=== PATIENT | female | born 1965 | race Asian ===

== ENCOUNTER 2016-10-14 10:00 | Emergency (ER) | payer OTHER ==
[~2016-10-14] VITALS: Ht 160 cm; Wt 71.7 kg
[~2016-10-14 10:00] MED LIST: ALBU-136 IH; FLUT1POW3 IH
[2016-10-14 10:03] VITALS: BP 152/114
--- NOTE | 2016-10-14 10:05 | NUR ---
PATIENT AMBULATED TO ER BED 4.
[2016-10-14] MEDS ORDERED: [UNRECOGNIZED DRUG - CODE] PO (10:07)
[2016-10-14] MEDS ORDERED: AMLO5TAB1 PO (10:07)
--- NOTE | 2016-10-14 10:10 | NUR ---
Patient being evaluated by physician at bedside.
[2016-10-14] MEDS ORDERED: methylPREDNISolone SS 125 MG in WATER STERILE 2 ML IM ONE (10:15)
[2016-10-14] MEDS ORDERED: ALBUTEROL 0.083% 2.5 MG/3 ML NEBU INH ONE ×2 (10:15→11:25)
[2016-10-14] MEDS ORDERED: IPRATROPIUM 0.02% 0.5 MG/2.5 ML NEBU INH ONE ×2 (10:15→11:25)
--- NOTE | 2016-10-14 10:16 | NUR ---
50/F TO ED WITH C/O SOB WITH COUGH AND CHEST PAIN STARTING AT APPROX 0200 TODAY. STATES PAIN IN CHEST IS NON RADIATING 12/12. PT HAS HX OF ASTHMA. BILAT WHEEZING HEARD IN LOWER LOBES. DENIES N/V/D. HR EVEN AND REGULAR. AAOX4. VSS. NO SIGNS OF DISTRESS. ERMD TO EVALUATE PT.
[2016-10-14 10:29] LABS: BASOPHILS # (AUTO) 0.3 K/uL (0.00-0.22); BASOPHILS % (AUTO) 3.2 % (0.0-2.0); EOSINOPHILS # (AUTO) 0.6 K/uL (0-0.4); EOSINOPHILS % (AUTO) 7.1 % (0.0-4.0); HEMATOCRIT 41.1 % (36-48); HEMOGLOBIN 13.4 g/dL (12.0-16.0); LYMPHOCYTES # (AUTO) 2.9 K/uL (2.5-16.5); LYMPHOCYTES % (AUTO) 34.6 % (20.5-51.1); MEAN CORPUSCULAR HEMOGLOBIN 28 pg (27-31); MEAN CORPUSCULAR HGB CONC 33 g/dL (33-37); MEAN CORPUSCULAR VOLUME 85 fL (80-94); MONOCYTES # (AUTO) 0.5 K/uL (0.8-1.0); MONOCYTES % (AUTO) 6.3 % (1.7-9.3); NEUTROPHILS % (AUTO) 48.8 % (42.2-75.2); PLATELET COUNT (AUTO) 494 K/uL (140-450); RED BLOOD CELL COUNT(AUTO) 4.84 MIL/uL (4.20-5.40); RED CELL DISTRIBUTION WIDTH 13.1 % (11.6-13.7); WHITE BLOOD COUNT (AUTO) 8.3 K/uL (4.8-10.8)
[2016-10-14 10:41] LABS: ANION GAP 13.3 (8-16); CALCIUM 9.9 mg/dL (8.5-10.1); CARBON DIOXIDE 26.8 mmol/L (21-32); CREATININE 0.8 mg/dL (0.6-1.3); POTASSIUM 4.1 mmol/L (3.5-5.1)
[2016-10-14 10:48] LABS: ALBUMIN 3.6 g/dL (3.4-5.0); TOTAL BILIRUBIN 0.3 mg/dL (0.0-1.0); TOTAL PROTEIN, SERUM 7.5 g/dL (6.4-8.2)
[2016-10-14 11:45] VITALS: BP 153/87
--- NOTE | 2016-10-14 11:45 | NUR ---
Patient discharged with v/s stable. Written and verbal after care instructions given and explained. Patient alert, oriented and verbalized understanding of instructions. Ambulatory with steady gait. All questions addressed prior to discharge. ID band removed. Patient advised to follow up with PMD. Rx of ZITHROMAX, ALBUTEROL, AND PREDNISONE given. Patient educated on indication of medication including possible reaction and side effects. Opportunity to ask questions provided and answered.
== END 2016-10-14 11:45 | disposition home or self-care (01) ==
LOC: MED 10:03
DX: J45.901 Unspecified asthma with (acute) exacerbation (principal); I10 Essential (primary) hypertension; R07.89 Other chest pain; F17.210 Nicotine dependence, cigarettes, uncomplicated; Z71.6 Tobacco abuse counseling
CPT/HCPCS: 36415; 71010; 80053; 84484; 85025; 93005; 94640; 96372; 99285; J2930; J7613; J7644; Q0092

== ENCOUNTER 2018-05-24 00:05 | Inpatient (IN) | payer OTHER ==
[~2018-05-24] VITALS: Ht 165.1 cm; Wt 69.4 kg
[~2018-05-24 00:05] MED LIST changes: +AMLO5TAB1 PO; +[UNRECOGNIZED DRUG - CODE] PO
[2018-05-24 00:13] VITALS: BP 173/85
[2018-05-24] MEDS ORDERED: IPRATROPIUM 0.02% 0.5 MG/2.5 ML NEBU INH ONE ×2 (00:15→01:10)
[2018-05-24] MEDS ORDERED: ALBUTEROL 0.083% 2.5 MG/3 ML NEBU INH ONE ×2 (00:15→01:10)
[2018-05-24] MEDS ORDERED: MAG SULF 2000 MG/WATER PREMIX 50 ML IV ONE (00:15)
[2018-05-24] MEDS ORDERED: methylPREDNISolone SS 125 MG/2 ML VIAL IVP ONE (00:15)
[2018-05-24 01:04] LABS: BASOPHILS # (AUTO) 0.1 K/uL (0.00-0.22); BASOPHILS % (AUTO) 0.7 % (0.0-2.0); EOSINOPHILS # (AUTO) 0.6 K/uL (0-0.4); EOSINOPHILS % (AUTO) 6.1 % (0.0-4.0); HEMATOCRIT 38.1 % (36-48); HEMOGLOBIN 12.4 g/dL (12.0-16.0); LYMPHOCYTES # (AUTO) 4.8 K/uL (2.5-16.5); LYMPHOCYTES % (AUTO) 46.5 % (20.5-51.1); MEAN CORPUSCULAR HEMOGLOBIN 27 pg (27-31); MEAN CORPUSCULAR HGB CONC 32 g/dL (33-37); MEAN CORPUSCULAR VOLUME 83.6 fL (80-94); MONOCYTES # (AUTO) 0.9 K/uL (0.8-1.0); MONOCYTES % (AUTO) 8.2 % (1.7-9.3); NEUTROPHILS % (AUTO) 38.5 % (42.2-75.2); PLATELET COUNT (AUTO) 382 K/uL (140-450); RED BLOOD CELL COUNT(AUTO) 4.56 MIL/uL (4.20-5.40); RED CELL DISTRIBUTION WIDTH 14.9 % (11.6-13.7); WHITE BLOOD COUNT (AUTO) 10.4 K/uL (4.8-10.8)
[2018-05-24 01:17] LABS: ANION GAP 12.2 (8-16); CARBON DIOXIDE 26.5 mmol/L (21-32); CREATININE 1.1 mg/dL (0.6-1.3); POTASSIUM 3.7 mmol/L (3.5-5.1)
[2018-05-24 01:23] LABS: ALBUMIN 3.2 g/dL (3.4-5.0); TOTAL BILIRUBIN 0.2 mg/dL (0.0-1.0)
[2018-05-24 01:24] LABS: PROTHROMBIN TIME 9.4 secs (10.8-13.4)
[2018-05-24] MEDS ORDERED: NACL 0.9% 1,000 ML IV SCH ×2 (01:35→01:38)
[2018-05-24] MEDS ORDERED: cefTRIAXone 1,000 MG in DEXT 5% MINI-BAG PLUS 50 ML IV ONE (01:45)
[2018-05-24] MEDS ORDERED: AZITHROMYCIN 500 MG in DEXTROSE 5% 250 ML IV ONE (01:45)
[2018-05-24] MEDS ORDERED: cefTRIAXone 1,000 MG VIAL ONE (02:21)
[2018-05-24] MEDS ORDERED: AZITHROMYCIN 500 MG INJ VIAL IV ONE (02:21)
[2018-05-24] MEDS ORDERED: DOCUSATE SODIUM 100 MG GELCAP PO PRN (02:30)
[2018-05-24] MEDS ORDERED: ACETAMINOPHEN 325 MG TAB PO PRN (02:30)
[2018-05-24] MEDS ORDERED: ONDANSETRON 4 MG/2 ML VIAL IM/IVP PRN (02:30)
[2018-05-24] MEDS ORDERED: ALBUTEROL SULFATE/IPRATROPIU 3 ML SOL IH PRN ×2 (02:30→18:45)
[2018-05-24] MEDS ORDERED: ZOLPIDEM 5 MG TAB PO PRN (02:30)
[2018-05-24] MEDS ORDERED: LORazepam 2 MG/ML VIAL IM/IVP PRN (02:30)
[2018-05-24] MEDS ORDERED: HYDROcodone/APAP 5/325 MG 1 TAB TAB PO PRN (02:30)
[2018-05-24 02:50] VITALS: BP 155/83
[2018-05-24 02:57] LABS: APPEARANCE,URINE CLEAR (CLEAR); BILIRUBIN,URINE NEGATIVE (NEGATIVE); BLOOD, URINE NEGATIVE (NEGATIVE); COLOR,URINE YELLOW (YELLOW); LEUKOCYTE ESTERASE ,URINE NEGATIVE (NEGATIVE); NITRITE, URINE NEGATIVE (NEGATIVE); UGLUCOSE NEGATIVE (NEGATIVE)
[2018-05-24 03:04] LABS: BARBITURATE, URINE NEG. ng/ml (NEG <=200); BENZODIAZEPINE, URINE NEG. ng/mL (NEG <=200); CANNABINOID, URINE NEG. ng/mL (NEG <=50); COCAINE, URINE NEG. ng/mL (NEG <=300); OPIATE, URINE NEG. ng/mL (NEG <=2000); PHENCYCLIDINE SCREEN,URINE NEG. ng/mL (NEG <=25)
[2018-05-24 04:01] LABS: CHOL/HDL RATIO 4.2 (1-4.5); MAGNESIUM 2.2 mg/dL (1.8-2.4); PHOSPHORUS 3.3 mg/dL (2.5-4.9); THYROID STIMULATING HORMONE 1.78 uIU/mL (0.34-3.74)
[2018-05-24] MEDS ORDERED: methylPREDNISolone SS 40 MG/ML VIAL IVP SCH (05:00)
[2018-05-24] MEDS: NACL 0.9% 1,000 ML IV SCH ×2 (05:36→18:46)
[2018-05-24] MEDS: methylPREDNISolone SS 125 MG/2 ML VIAL IVP SCH ×3 (05:36→21:09)
[2018-05-24] MEDS ORDERED: ALBUTEROL SULFATE/IPRATROPIU 3 ML SOL IH SCH ×2 (06:00→11:14)
[2018-05-24 07:27] LABS: BASOPHILS % (AUTO) 0.3 % (0.0-2.0); EOSINOPHILS % (AUTO) 0.1 % (0.0-4.0); HEMATOCRIT 36.4 % (36-48); HEMOGLOBIN 11.9 g/dL (12.0-16.0); LYMPHOCYTES # (AUTO) 0.8 K/uL (2.5-16.5); LYMPHOCYTES % (AUTO) 11.4 % (20.5-51.1); MEAN CORPUSCULAR HEMOGLOBIN 28 pg (27-31); MEAN CORPUSCULAR HGB CONC 33 g/dL (33-37); MEAN CORPUSCULAR VOLUME 83.7 fL (80-94); MONOCYTES # (AUTO) 0.1 K/uL (0.8-1.0); NEUTROPHILS # (AUTO) 5.8 K/uL (1.8-7.7); NEUTROPHILS % (AUTO) 87.2 % (42.2-75.2); PLATELET COUNT (AUTO) 353 K/uL (140-450); RED BLOOD CELL COUNT(AUTO) 4.34 MIL/uL (4.20-5.40); RED CELL DISTRIBUTION WIDTH 14.9 % (11.6-13.7); WHITE BLOOD COUNT (AUTO) 6.6 K/uL (4.8-10.8)
[2018-05-24 08:00] VITALS: BP 130/73
[2018-05-24 08:02] LABS: ANION GAP 15.3 (8-16); CARBON DIOXIDE 20.8 mmol/L (21-32); CREATININE 0.9 mg/dL (0.6-1.3); POTASSIUM 4.1 mmol/L (3.5-5.1)
[2018-05-24 08:24] LABS: MAGNESIUM 2.1 mg/dL (1.8-2.4); PHOSPHORUS 1.6 mg/dL (2.5-4.9)
[2018-05-24] MEDS: NICOTINE TRANSD SYS 14 MG/24 HR PATCH TD SCH (09:00)
[2018-05-24] MEDS ORDERED: AZITHROMYCIN 250 MG TAB PO SCH (09:00)
[2018-05-24] MEDS ORDERED: NON-FORMULARY ITEM (Fluticasone/Vilanterol (Breo Ellipta 100-25 Mcg INH) 1 POW) IH SCH (09:00)
[2018-05-24] MEDS ORDERED: LOSARTAN 50 MG TAB PO SCH (09:00)
[2018-05-24] MEDS ORDERED: VALSARTAN PO SCH (09:00)
[2018-05-24] MEDS: FAMOTIDINE 20 MG TAB PO SCH (09:34)
[2018-05-24] MEDS: amLODIPine 5 MG TAB PO SCH (09:35)
[2018-05-24] MEDS: MONTELUKAST SODIUM 10 MG TAB PO SCH (09:35)
[2018-05-24] MEDS: LORATADINE 10 MG TAB PO SCH (09:36)
[2018-05-24] MEDS: LACTOBACILLUS RHAMNOSUS GG 1 EACH CAP PO SCH (09:37)
[2018-05-24] MEDS ORDERED: NACL 0.9% 500 ML IV SCH (10:00)
[2018-05-24 12:00] VITALS: BP 134/80
[2018-05-24] MEDS ORDERED: BUDE180P IH (14:29)
[2018-05-24] MEDS ORDERED: AZIT500T1 PO (14:31)
[2018-05-24] MEDS ORDERED: LACT10CA1 PO (14:31)
[2018-05-24] MEDS ORDERED: SODIUM PHOS / POTASSIUM PHOS 1 PKT PDR PO SCH (15:00)
[2018-05-24 16:00] VITALS: BP 145/78
[2018-05-24] MEDS ORDERED: IPRATROPIUM 0.02% 0.5 MG/2.5 ML NEBU INH SCH (19:00)
[2018-05-24] MEDS ORDERED: IPRATROPIUM 0.02% 0.5 MG/2.5 ML NEBU INH PRN (19:05)
[2018-05-24 20:00] VITALS: BP 126/71
[2018-05-25] VITALS: BP 118/58
[2018-05-25] MEDS: NACL 0.9% 1,000 ML IV SCH ×2 (01:56→06:35)
[2018-05-25 04:00] VITALS: BP 116/67
[2018-05-25] MEDS ORDERED: methylPREDNISolone SS 40 MG/ML VIAL IVP SCH (05:00)
[2018-05-25] MEDS ORDERED: BUDE1AER IH (05:51)
[2018-05-25] MEDS ORDERED: SPIMDI INH (05:54)
[2018-05-25] MEDS ORDERED: PRED50TA2 PO (05:57)
[2018-05-25] MEDS ORDERED: PRED10TA5 PO (06:50)
[2018-05-25] MEDS ORDERED: PRED20TA5 PO (06:50)
[2018-05-25] MEDS ORDERED: PRED20TA6 PO (06:50)
[2018-05-25 08:00] VITALS: BP 148/85
[2018-05-25] MEDS: MONTELUKAST SODIUM 10 MG TAB PO SCH (08:27)
[2018-05-25] MEDS: FAMOTIDINE 20 MG TAB PO SCH (08:27)
[2018-05-25] MEDS: LORATADINE 10 MG TAB PO SCH (08:27)
[2018-05-25] MEDS: LACTOBACILLUS RHAMNOSUS GG 1 EACH CAP PO SCH (08:28)
[2018-05-25] MEDS: amLODIPine 5 MG TAB PO SCH (08:28)
[2018-05-25] MEDS: NICOTINE TRANSD SYS 14 MG/24 HR PATCH TD SCH (08:32)
[2018-05-25] MEDS ORDERED: methylPREDNISolone SS 125 MG/2 ML VIAL IVP SCH (09:00)
[2018-05-25] MEDS ORDERED: AZITHROMYCIN 250 MG TAB PO SCH (09:00)
[2018-05-25] MEDS ORDERED: LOSARTAN 50 MG TAB PO SCH (09:00)
== END 2018-05-25 09:40 | disposition home or self-care (01) | DRG 202 ==
LOC: MED 00:05 → EEVIPCON 00:05 → MTU 02:28
PROVIDERS: ADMIT General Practice; ATTEND General Practice
DX: J45.901 Unspecified asthma with (acute) exacerbation (principal); E44.0 Moderate protein-calorie malnutrition; E87.2 Acidosis; I10 Essential (primary) hypertension; F17.210 Nicotine dependence, cigarettes, uncomplicated; E86.0 Dehydration; Z88.2 Allergy status to sulfonamides; Z91.040 Latex allergy status; Z79.899 Other long term (current) drug therapy; Z79.51 Long term (current) use of inhaled steroids; Z68.25 Body mass index [BMI] 25.0-25.9, adult; Z90.49 Acquired absence of other specified parts of digestive tract; Z91.041 Radiographic dye allergy status; Z91.013 Allergy to seafood; Z91.018 Allergy to other foods; Z82.5 Family history of asthma and other chronic lower respiratory diseases
CPT/HCPCS: 36415; 71045; 80048; 80053; 80305; 81003; 83036; 83605; 83690; 83735; 83880; 84100; 84134; 84443; 84484; 85025; 85610; 85730; 87040; 87081; 87086; 93005; 94640; 96374; 99285; J0456; J0696; J2920; J2930; J3475; J7030; J7613; J7620; J7644; Q0092

== ENCOUNTER 2018-07-27 11:58 | Outpatient (CLI) | payer OTHER ==
[~2018-07-27 11:58] MED LIST changes: +AZIT500T1 PO; +BUDE1AER IH; -FLUT1POW3 IH; +LACT10CA1 PO; +PRED10TA5 PO; +PRED20TA5 PO; +PRED20TA6 PO; +PRED50TA2 PO; +SPIMDI INH
== END 2018-07-27 19:55 | disposition home or self-care (01) ==
LOC: MLB 11:58
PROVIDERS: ATTEND Internal Medicine Pulmonary Disease
DX: J44.1 Chronic obstructive pulmonary disease with (acute) exacerbation (principal); Z88.2 Allergy status to sulfonamides
CPT/HCPCS: 71046; 87205

== ENCOUNTER 2018-10-04 07:34 | Inpatient (IN) | payer OTHER ==
[~2018-10-04] VITALS: Ht 160 cm; Wt 69.9 kg
--- NOTE | 2018-10-04 07:34 | NUR ---
PATIENT AMBULATED TO BED 1 AT THIS TIME.
[2018-10-04 07:35] VITALS: BP 166/78
--- NOTE | 2018-10-04 07:50 | NUR ---
BIB SELF C/O SUDDEN ONSET/INTERMITTENT SUBSTERNAL ACHING CHEST PAIN WHICH RADIATES TO RIGHT UPPER BACK [id number] WHILE GETTING REPORT AT WORK. NO SOB, NO N/V. PT STS "I GOT SWEATY." CHEST PAIN RESOLVED NOW. RIGHT UPPER BACK PAIN 09/11. NSR ON MONITOR, BREATHING EVEN AND UNLABORED. LUNG SOUNDS CTAB. SKIN WARM, PINK, AND DRY.
--- NOTE | 2018-10-04 07:50 | NUR ---
DR. PEDRO AT BEDSIDE TO EVALUATE PT.
[2018-10-04] MEDS ORDERED: ASPIRIN 81 MG TAB.CHEW PO ONE (07:55)
[2018-10-04] MEDS ORDERED: MONT10TA35 PO (08:04)
--- NOTE | 2018-10-04 08:06 | NUR ---
PCXR AT BEDSIDE
[2018-10-04 08:20] LABS: BASOPHILS # (AUTO) 0.1 K/uL (0.00-0.22); BASOPHILS % (AUTO) 0.9 % (0.0-2.0); EOSINOPHILS # (AUTO) 0.5 K/uL (0-0.4); EOSINOPHILS % (AUTO) 8.3 % (0.0-4.0); HEMATOCRIT 40.2 % (36-48); HEMOGLOBIN 13.3 g/dL (12.0-16.0); LYMPHOCYTES % (AUTO) 32.4 % (20.5-51.1); MEAN CORPUSCULAR HEMOGLOBIN 28 pg (27-31); MEAN CORPUSCULAR HGB CONC 33 g/dL (33-37); MEAN CORPUSCULAR VOLUME 84.6 fL (80-94); MONOCYTES # (AUTO) 0.5 K/uL (0.8-1.0); NEUTROPHILS # (AUTO) 3.1 K/uL (1.8-7.7); NEUTROPHILS % (AUTO) 50.4 % (42.2-75.2); PLATELET COUNT (AUTO) 426 K/uL (140-450); RED BLOOD CELL COUNT(AUTO) 4.75 MIL/uL (4.20-5.40); RED CELL DISTRIBUTION WIDTH 14.8 % (11.6-13.7); WHITE BLOOD COUNT (AUTO) 6.1 K/uL (4.8-10.8)
--- NOTE | 2018-10-04 08:20 | NUR ---
PT AMBULATED TO RESTROOM AND BACK TO [facility] WITH STEADY GAIT.
[2018-10-04 08:46] LABS: ALBUMIN 3.2 g/dL (3.4-5.0); ANION GAP 15.9 (8-16); CARBON DIOXIDE 24.9 mmol/L (21-32); CREATININE 0.7 mg/dL (0.6-1.3); POTASSIUM 3.8 mmol/L (3.5-5.1); TOTAL BILIRUBIN 0.2 mg/dL (0.0-1.0)
[2018-10-04] MEDS ORDERED: ONDANSETRON 4 MG/2 ML VIAL IVP PRN (09:55)
[2018-10-04] MEDS ORDERED: HYDROcodone/APAP 7.5/325 MG 1 TAB PO PRN (09:55)
[2018-10-04] MEDS ORDERED: NACL 0.9% 1,000 ML IV SCH (09:55)
[2018-10-04] MEDS ORDERED: NITROGLYCERIN 0.4 MG TAB SL PRN (09:55)
[2018-10-04] MEDS ORDERED: ZOLPIDEM 5 MG TAB PO PRN (09:55)
[2018-10-04] MEDS ORDERED: ALBUTEROL SULFATE/IPRATROPIU 3 ML SOL IH PRN (09:55)
--- NOTE | 2018-10-04 10:17 | NUR ---
PT A&OX4, BREATHING EVEN AND UNLABORED. NSR ON MONITOR. DENIES CP. NO SOB, N/V.
[2018-10-04 10:30] VITALS: BP 128/84
--- NOTE | 2018-10-04 10:37 | NUR ---
Patient will be admitted to care of DR. MA. Admited to TELE. Will go to room 125. Belongings list completed. Report to MARSHA WAGNER.
--- NOTE | 2018-10-04 11:00 | NUR ---
Admitted from ED , with chief complaint of CHEST PAIN THAT STARTED THIS MORNING AT WORK. PT AAOX4. NO SOB NOTED, NO C/O PAIN AT THIS TIME. IV TO LT AC PATENT AND INTACT. CHEST, DIMINISHED AIR ENTRY TO THE BASES, OTHERWISE CLEAR. ABDOMEN SOFT, BOWEL SOUNDS PRESENT. NO EDEMA NOTED. PT IS A 52 y/o ,Female, Cooperative,oriented to call light, bed, phone,television, bathroom, smoking policy,visiting hours, procedures, ID bracelet on. Belongings list checked. INSTRUCTED PT TO CALL FOR ASSISTANCE, CALL LIGHT WITHIN REACH, PT VERBALIZED UNDERSTANDING.
[2018-10-04] MEDS ORDERED: LOSA50TA66 PO (11:53)
[2018-10-04] MEDS ORDERED: UMEC62.5 IH (11:53)
[2018-10-04 12:14] LABS: FREE T4 (FREE THYROXINE) 0.98 ng/dL (0.76-1.46); MAGNESIUM 2.1 mg/dL (1.8-2.4); PHOSPHORUS 2.6 mg/dL (2.5-4.9); THYROID STIMULATING HORMONE 0.81 uIU/mL (0.34-3.74)
--- NOTE | 2018-10-04 12:15 | NUR ---
ECHO ON GOING AT THE BEDSIDE.
[2018-10-04 12:26] LABS: PROTHROMBIN TIME 9.3 secs (10.8-13.4)
--- NOTE | 2018-10-04 14:15 | NUR ---
pt resting. no SOB noted, no signs of pain noted.
[2018-10-04 16:00] VITALS: BP 118/81
[2018-10-04 16:13] LABS: APPEARANCE,URINE CLEAR (CLEAR); BILIRUBIN,URINE NEGATIVE (NEGATIVE); BLOOD, URINE 2+ (NEGATIVE); COLOR,URINE YELLOW (YELLOW); LEUKOCYTE ESTERASE ,URINE NEGATIVE (NEGATIVE); NITRITE, URINE NEGATIVE (NEGATIVE); PH,URINE 7.5 (5.0-9.0); UGLUCOSE NEGATIVE (NEGATIVE)
[2018-10-04 16:20] LABS: WBC,URINE 0-5 /HPF (0-5)
--- NOTE | 2018-10-04 16:45 | NUR ---
pt awake. watching TV. no SOB noted. no complaints made.
--- NOTE | 2018-10-04 18:10 | NUR ---
pt eating dinner. no c/o pain at this time.
[2018-10-04] MEDS ORDERED: POLYVINYL ALCOHOL 1.4% OP 15 ML SOL OP PRN (18:45)
--- NOTE | 2018-10-04 19:00 | NUR ---
pt awake, talking to at the bedside. no c/o pain at this time. will endorse to next shift nurse for continuity of care.
--- NOTE | 2018-10-04 19:05 | NUR ---
RECEIVED REPORT FROM DAY SHIFT NURSE. AAOX4. NO C/O PAIN OR SOB. ON ROOM AIR. IV TO LEFT AC#22G, SALINE LOCK. DISCUSSED PLAN OF CARE, PT VERBALIZED UNDERSTANDING. CALL LIGHT WITHIN REACH.
[2018-10-04 20:00] VITALS: BP 117/63
--- NOTE | 2018-10-04 20:35 | NUR ---
RECEIVED PATIENT ON ROOM AIR, PULSE OX SAT 99%. PATIENT DENIES SOB. BREATH SOUNDS CLEAR. NO PRN TX INDICATED AT THIS TIME. NO RESPIRATORY DISTRESS NOTED AT THIS TIME. WILL CONTINUE TO MONITOR.
--- NOTE | 2018-10-04 20:51 | NUR ---
DR. DIAZ IN THE ROOM TALKING TO PT. PT'S AT BEDSIDE.
[2018-10-04] MEDS ORDERED: MONTELUKAST SODIUM 10 MG TAB PO SCH (21:00)
[2018-10-04] MEDS ORDERED: NON-FORMULARY ITEM (Budesonide/Formoterol Fumarate* (Symbicort 160-4.5 Mcg Inhaler*) 2 PUF IH SCH (21:00)
[2018-10-04] MEDS: DOCUSATE SODIUM 100 MG GELCAP PO SCH (21:00)
[2018-10-04] MEDS ORDERED: ATORVASTATIN 20 MG TAB PO SCH (21:00)
[2018-10-04] MEDS: METOPROLOL 25 MG TAB PO SCH (21:00)
--- NOTE | 2018-10-04 21:00 | NUR ---
PT REFUSED COLACE AND HEPARIN [address] DIAZ IF PT NEEDS HEPARIN SUBQ, PER MD, PT DOESN'T NEED IT, 2 TROPONIN LEVEL WERE NEGATIVE.
[2018-10-05] VITALS: BP 138/69
--- NOTE | 2018-10-05 | NUR ---
CHECKED V/S, WNL. NO C/O PAIN OR SOB. NEEDS MET AT THIS TIME. CALL LIGHT WITHIN REACH.
[2018-10-05] MEDS: ACETAMINOPHEN 325 MG TAB PO PRN ×2 (03:47→14:12)
--- NOTE | 2018-10-05 03:47 | NUR ---
PT C/O HEADACHE. TYLENOL 650 MG PO GIVEN.
[2018-10-05 04:00] VITALS: BP 128/71
--- NOTE | 2018-10-05 05:30 | NUR ---
PT SLEEPING BUT EASILY AROUSABLE. NO S/S OF PAIN OR DISCOMFORT. NO S/S OF RESP DISTRESS.
[2018-10-05 06:30] LABS: BASOPHILS # (AUTO) 0.1 K/uL (0.00-0.22); BASOPHILS % (AUTO) 0.9 % (0.0-2.0); EOSINOPHILS # (AUTO) 0.7 K/uL (0-0.4); EOSINOPHILS % (AUTO) 10.1 % (0.0-4.0); HEMATOCRIT 38.3 % (36-48); HEMOGLOBIN 12.8 g/dL (12.0-16.0); LYMPHOCYTES # (AUTO) 2.5 K/uL (2.5-16.5); LYMPHOCYTES % (AUTO) 35.2 % (20.5-51.1); MEAN CORPUSCULAR HEMOGLOBIN 28 pg (27-31); MEAN CORPUSCULAR HGB CONC 33 g/dL (33-37); MEAN CORPUSCULAR VOLUME 84.3 fL (80-94); MONOCYTES # (AUTO) 0.6 K/uL (0.8-1.0); NEUTROPHILS # (AUTO) 3.2 K/uL (1.8-7.7); NEUTROPHILS % (AUTO) 45.8 % (42.2-75.2); PLATELET COUNT (AUTO) 401 K/uL (140-450); RED BLOOD CELL COUNT(AUTO) 4.54 MIL/uL (4.20-5.40); RED CELL DISTRIBUTION WIDTH 14.8 % (11.6-13.7)
[2018-10-05 06:56] LABS: ANION GAP 14.1 (8-16); CARBON DIOXIDE 23.9 mmol/L (21-32); CREATININE 0.8 mg/dL (0.6-1.3)
--- NOTE | 2018-10-05 07:05 | NUR ---
ENDORSED PT TO DAY SHIFT NURSE. PT IN STABLE CONDITION.
--- NOTE | 2018-10-05 07:10 | NUR ---
RECEIVED PT FROM OCEANOLOGIST NURSESELMA, PT IS AWAKE AND SEATED ON THE BED, ALERT AND AMBULATES, PT HAS AN IV LINE ON THE LEFT AC G. 22 ON SALINE LOCK, PT DENIES CHEST PAIN AND NO SOB NOTED, SIDE RAILS ARE UP AND CALL LIGHT WITHIN REACH. WILL CONTINUE TO MONITOR PT.
[2018-10-05 07:12] LABS: CHOL/HDL RATIO 3.1 (1-4.5); MAGNESIUM 2.1 mg/dL (1.8-2.4)
[2018-10-05 08:00] VITALS: BP 137/81
--- NOTE | 2018-10-05 08:19 | NUR ---
PATIENT HAS BEEN SCREENED AND CATEGORIZED MODERATE NUTRITION RISK. PATIENT WILL BE SEEN WITHIN 3-5 DAYS OF ADMISSION. 10/07/18V[address]
[2018-10-05] MEDS: DOCUSATE SODIUM 100 MG GELCAP PO SCH (08:41)
[2018-10-05] MEDS: METOPROLOL 25 MG TAB PO SCH (08:44)
--- NOTE | 2018-10-05 08:53 | NUR ---
PT IS AWAKE AND ORAL MEDICATIONS WERE GIVEN, VITAL SIGNS CHECKED AND BP IS 137/81, PULSE IS 83, TEMPERATURE IS 98.5, O2 SATURATION IS 100% AND RESPIRATION IS 16/MIN, PT TOLERATED THE MEDICATIONS AND NO SIGN OF DISTRESS NOTED. WILL MONITOR PT.
[2018-10-05] MEDS ORDERED: amLODIPine 5 MG TAB PO SCH (09:00)
[2018-10-05] MEDS ORDERED: NON-FORMULARY ITEM (Tiotropium Bromide* (Spiriva Mdi*) 2 PUFF) INH SCH (09:00)
[2018-10-05] MEDS ORDERED: ASPIRIN 81 MG TAB.CHEW PO SCH (09:00)
[2018-10-05] MEDS ORDERED: LOSARTAN 50 MG TAB PO SCH (09:00)
[2018-10-05] MEDS ORDERED: UMECLIDINIUM BROMIDE 62.5 MCG IH SCH (09:00)
--- NOTE | 2018-10-05 10:48 | NUR ---
PT IS OFF THE UNIT NOW FOR A STRESS TEST.
--- NOTE | 2018-10-05 11:00 | NUR ---
PATIENT IN STRESS TEST PROCEDURE AT THIS TIME MOVING WORKER TO ATTEMPT PATIENT ASSESSMENT AT A LATER TIME
[2018-10-05 12:00] VITALS: BP 140/92
--- NOTE | 2018-10-05 12:00 | NUR ---
PT IS BACK TO THE UNIT AND ROOM FROM THE STRESS TEST.
--- NOTE | 2018-10-05 14:15 | NUR ---
PT VERBALIZED A HEADACHE FOR A PAIN RATE OF 5/10 AND REQUESTED FOR A TYLENOL AND MEDICATION WAS GIVEN. WILL RE-ASSESS PAIN IN AN HOUR.
[2018-10-05] MEDS ORDERED: FAMO40TA12 PO (15:16)
[2018-10-05] MEDS ORDERED: OLOP5SOL OP (15:16)
[2018-10-05] MEDS ORDERED: VARE1TAB PO (15:33)
[2018-10-05 16:00] VITALS: BP 131/80
--- NOTE | 2018-10-05 16:30 | NUR ---
PT IS AWAKE AND SEATED ON THE BED, VITAL SIGNS TAKEN AND RESULT IS BP IS 131/80, PULSE IS 75, O2 SATURATION IS 97%, TEMPERATURE IS 97.9 AND RESPIRATION IS 18/MIN. NO SIGN OF DISTRESS NOTED AND WILL MONITOR PT.
--- NOTE | 2018-10-05 17:35 | NUR ---
DISCHARGED PT WITH , AMBULATED TO THE LOBBY, TEACHINGS AND INSTRUCTIONS WERE GIVEN AND PT VERBALIZED UNDERSTANDING, PERIPHERAL LINE AND ARM BANDS REMOVED. PT SIS STABLE AT THIS TIME, AND DENIES ANY PAIN. VITAL SIGNS ARE BP IS 132/76, PULSE IS 85, TEMPERATURE IS 98.4, O2 SATURATION IS 97% AND RESPIRATION IS 16/MIN.
== END 2018-10-05 17:35 | disposition home or self-care (01) | DRG 392 ==
LOC: MED 07:34 → MMU 09:55
PROVIDERS: ADMIT General Practice; ATTEND General Practice
DX: K21.9 Gastro-esophageal reflux disease without esophagitis (principal); E44.1 Mild protein-calorie malnutrition; E66.3 Overweight; I10 Essential (primary) hypertension; J45.909 Unspecified asthma, uncomplicated; R73.03 Prediabetes; F17.210 Nicotine dependence, cigarettes, uncomplicated; E78.5 Hyperlipidemia, unspecified; I27.20 Pulmonary hypertension, unspecified; Z68.27 Body mass index [BMI] 27.0-27.9, adult; Z71.3 Dietary counseling and surveillance; Z88.2 Allergy status to sulfonamides; Z91.041 Radiographic dye allergy status; Z91.040 Latex allergy status; Z79.899 Other long term (current) drug therapy; Z90.49 Acquired absence of other specified parts of digestive tract; Z82.5 Family history of asthma and other chronic lower respiratory diseases
CPT/HCPCS: 36415; 71045; 80048; 80053; 81001; 82150; 83036; 83690; 83735; 83880; 84100; 84439; 84443; 84484; 85025; 85610; 85730; 87081; 93005; 93017; 99285; J1644; Q0092

== ENCOUNTER 2019-02-01 12:36 | Emergency (ER) | payer OTHER ==
[~2019-02-01] VITALS: Ht 160 cm; Wt 69.9 kg
[~2019-02-01 12:36] MED LIST changes: -AZIT500T1 PO; +FAMO40TA12 PO; -LACT10CA1 PO; +LOSA50TA66 PO; +MONT10TA35 PO; +OLOP5SOL OP; -PRED10TA5 PO; -PRED20TA5 PO; -PRED20TA6 PO; -PRED50TA2 PO; +UMEC62.5 IH; +VARE1TAB PO; -[UNRECOGNIZED DRUG - CODE] PO
[2019-02-01 12:57] VITALS: BP 153/90
--- NOTE | 2019-02-01 12:59 | NUR ---
PT BIB SELF WITH C/O DRY COUGH SINCE LAST . STATES HAS SOME ALLERGY. STATES TO HAVE LITTLE ITCHING AT BOTH EYES. DENIES ANY FEVER , CHILLS, PAIN AT THIS TIME. HAS HX OF HTN AND ASTHMA. ALLERGIC TO SULFA DRUGS. ER MD TO SEE THE PT.
--- NOTE | 2019-02-01 14:10 | NUR ---
Patient discharged with v/s stable. Written and verbal after care instructions given and explained. Patient alert, oriented and verbalized understanding of instructions. Ambulatory with steady gait. All questions addressed prior to discharge. ID band removed. Patient advised to follow up with PMD. Rx of CLARITIN given. Patient educated on indication of medication including possible reaction and side effects. Opportunity to ask questions provided and answered.
[2019-02-01 14:13] VITALS: BP 153/90
== END 2019-02-01 14:10 | disposition home or self-care (01) ==
LOC: MED 12:36
DX: J45.909 Unspecified asthma, uncomplicated (principal); I10 Essential (primary) hypertension; F17.210 Nicotine dependence, cigarettes, uncomplicated; Z91.040 Latex allergy status; Z88.8 Allergy status to other drugs, medicaments and biological substances; Z79.899 Other long term (current) drug therapy; Z87.09 Personal history of other diseases of the respiratory system
CPT/HCPCS: 71045; 99283; Q0092

== ENCOUNTER 2019-09-27 08:28 | Outpatient (CLI) | payer OTHER ==
[2019-09-27 09:04] LABS: BASOPHILS # (AUTO) 0.1 K/uL (0.00-0.22); BASOPHILS % (AUTO) 1.3 % (0.0-2.0); EOSINOPHILS # (AUTO) 0.5 K/uL (0-0.4); EOSINOPHILS % (AUTO) 6.7 % (0.0-4.0); HEMATOCRIT 41.8 % (36-48); HEMOGLOBIN 13.9 g/dL (12.0-16.0); LYMPHOCYTES # (AUTO) 2.9 K/uL (2.5-16.5); LYMPHOCYTES % (AUTO) 39.4 % (20.5-51.1); MEAN CORPUSCULAR HEMOGLOBIN 29 pg (27-31); MEAN CORPUSCULAR HGB CONC 33 g/dL (33-37); MEAN CORPUSCULAR VOLUME 86.1 fL (80-94); MONOCYTES # (AUTO) 0.4 K/uL (0.8-1.0); MONOCYTES % (AUTO) 5.8 % (1.7-9.3); NEUTROPHILS # (AUTO) 3.5 K/uL (1.8-7.7); NEUTROPHILS % (AUTO) 46.8 % (42.2-75.2); PLATELET COUNT (AUTO) 417 K/uL (140-450); RED BLOOD CELL COUNT(AUTO) 4.85 MIL/uL (4.20-5.40); RED CELL DISTRIBUTION WIDTH 13.4 % (11.6-13.7); WHITE BLOOD COUNT (AUTO) 7.4 K/uL (4.8-10.8)
[2019-09-27 10:23] LABS: CHOL/HDL RATIO 3.8 (1-4.5); THYROID STIMULATING HORMONE 1.33 uIU/mL (0.34-3.74)
== END 2019-09-27 21:56 | disposition home or self-care (01) ==
LOC: MLB 08:28
PROVIDERS: ATTEND Family Medicine
DX: I10 Essential (primary) hypertension (principal)
CPT/HCPCS: 36415; 82306; 84443; 85025

== ENCOUNTER 2020-03-25 08:14 | Outpatient (CLI) | payer OTHER ==
[2020-03-25 08:49] LABS: ALBUMIN 3.6 g/dL (3.4-5.0); ANION GAP 14.5 (8-16); CARBON DIOXIDE 25.2 mmol/L (21-32); CREATININE 0.9 mg/dL (0.6-1.3); POTASSIUM 3.7 mmol/L (3.5-5.1); TOTAL BILIRUBIN 0.2 mg/dL (0.0-1.0)
== END 2020-03-25 20:18 | disposition home or self-care (01) ==
LOC: MLB 08:14
PROVIDERS: ATTEND Family Medicine
DX: I10 Essential (primary) hypertension (principal)
CPT/HCPCS: 36415; 80053; 82306

== ENCOUNTER 2023-05-18 15:26 | Outpatient (CLI) | payer OTHER ==
[~2023-05-18 15:26] MED LIST changes: +ALBU-118 IH; -ALBU-136 IH; +MONT-72 PO; -MONT10TA35 PO
== END 2023-05-18 16:00 | disposition home or self-care (01) ==
LOC: MRD 15:26
DX: F17.210 Nicotine dependence, cigarettes, uncomplicated (principal)